=== PATIENT | female | born 2000 | race Caucasian/White ===

== ENCOUNTER 2019-08-21 16:03 | Inpatient (IN) ==
[2019-08-21 14:09] LABS: Basophils % 0.2 %; Eosinophils # 0.1 K/mcL (0.0-0.6); Eosinophils % 0.5 %; Hematocrit 36.2 % (35.3-44.9); Hemoglobin 12.4 g/dL (11.5-15.4); Immature Granulocytes % 0.5 % (0-4); Lymphocytes # 1.5 K/mcL (0.6-4.6); Lymphocytes % 14.5 %; Mean Corpuscular HGB Conc 34.3 g/dL (31.6-35.5); Mean Corpuscular Hemoglobin 29.4 pg (28.0-33.3); Mean Corpuscular Volume 85.8 fL (83.0-100.0); Mean Platelet Volume 10.7 fL (9.4-12.4); Monocytes # 0.6 K/mcL (0.0-1.3); Neutrophils # 8.2 K/mcL (1.6-8.9); Platelet Count 198 K/mcL (140-400); Red Blood Count 4.22 M/mcL (3.82-4.97); Red Cell Distribution Width 13.1 % (11.5-14.5); Segmented Neutrophils % 78.3 %; White Blood Count 10.4 K/mcL (4.3-11.1)
[2019-08-21 14:24] LABS: Alanine Aminotransferase 16 Units/L (7-52); Aspartate Amino Transferase 24 Units/L (13-39); BUN/Creatinine Ratio 15 (6-26); Blood Urea Nitrogen 8 mg/dL (6-20); Lactate Dehydrogenase 236 Units/L (140-271); Uric Acid 5.2 mg/dL (2.3-7.6); eGFR For African Americans > 60 (> 60); eGFR For Non-African Americans > 60 (> 60)
[2019-08-21 14:34] LABS: Protein/Creatinine Ratio,Urine 0.34 mg/mg (0.00-0.20)
[~2019-08-21 16:03] MED LIST: *HR* FentaNYL (PF) 100 MCG/2 ML VIAL IVP PRN; Azithromycin 500 MG in 0.9 % Sodium Chloride 250 ML IVPB ONE; Famotidine 20 MG/2 ML VIAL IVP PRN; Metoclopramide 10 MG/2 ML VIAL IVP PRN; Naloxone 0.4 MG/ML INJ IVP PRN; Ondansetron 4 MG/2 ML VIAL IVP PRN
[2019-08-21] MEDS ORDERED: miSOPROStoL 25 MCG TABLET VG PRN (16:05)
[2019-08-21] MEDS ORDERED: Acetaminophen 325 MG TABLET PO PRN (16:05)
[2019-08-21] MEDS ORDERED: Ringers Solution, Lactated 1,000 ML IVC SCH (16:15)
[2019-08-21] MEDS ORDERED: EPHEDrine 50 MG/ML VIAL IVP PRN (16:25)
[2019-08-21] MEDS ORDERED: *HR* FentaNYL (PF) 100 MCG/2 ML VIAL EP ONE (16:25)
[2019-08-21] MEDS ORDERED: Epidural Premix (fent/bupiv) 110 ML EP SCH (16:30)
[2019-08-21 16:37] LABS: Amphetamine Screen,Urine Negative ng/mL (Cutoff=1000); Barbiturate Screen,Urine Negative ng/mL (Cutoff=200); Benzodiazepines Screen,Urine Negative ng/mL (Cutoff=200); Cannabinoid Screen,Urine Negative ng/mL (Cutoff = 50); Cocaine Screen,Urine Negative ng/mL (Cutoff= 300); Opiate Screen,Urine Negative ng/mL (Cutoff=300); Phencyclidine Screen,Urine Negative ng/mL (Cutoff=25)
[2019-08-21] MEDS ORDERED: *HR* FentaNYL (PF) 100 MCG/2 ML VIAL ONE (19:18)
[2019-08-22] MEDS ORDERED: Oxytocin 20 units/ LR 1000 mL 20 UNIT/1,000 ML BAG IVC ONE (03:15)
[2019-08-22] MEDS ORDERED: Lidocaine 1% 20 ML MDV INFILT PRN (03:17)
[2019-08-22] MEDS ORDERED: Oxytocin 20 units/ LR 1000 mL 20 UNIT/1,000 ML BAG IVC SCH (07:32)
[2019-08-22] MEDS ORDERED: Rho Immune Globulin 1,500 UNIT SYRINGE IM PRN (07:32)
[2019-08-22] MEDS ORDERED: Measles/Mumps/Rubella Vacc 0.5 ML VIAL SQ PRN (07:32)
[2019-08-22] MEDS ORDERED: *HR* Labetalol 20 MG/4 ML SYRINGE IVP ONE ×2 (07:50→07:57)
[2019-08-22] MEDS: Acetaminophen 325 MG TABLET PO PRN (07:55)
[2019-08-22] MEDS ORDERED: Calcium Gluconate 1,000 MG/10 ML VIAL IVP PRN (08:09)
[2019-08-22] MEDS: Ibuprofen 600 MG TABLET PO PRN ×3 (08:35→21:55)
[2019-08-22] MEDS ORDERED: [UNRECOGNIZED DRUG - OTHER] PO SCH (09:00)
[2019-08-22] MEDS: Magnesium Sulf 20 gm/SW 500mL 20 GM/500 ML IV.SOLN IVC SCH ×2 (09:06→18:14)
[2019-08-22] MEDS: Prenatal Vit/FA 1 EACH TABLET PO SCH (10:43)
[2019-08-23] MEDS: Magnesium Sulf 20 gm/SW 500mL 20 GM/500 ML IV.SOLN IVC SCH (04:49)
[2019-08-23 05:08] LABS: Basophils % 0.2 %; Eosinophils # 0.1 K/mcL (0.0-0.6); Eosinophils % 0.5 %; Hematocrit 32.8 % (35.3-44.9); Hemoglobin 11.1 g/dL (11.5-15.4); Immature Granulocytes % 0.5 % (0-4); Lymphocytes # 2.3 K/mcL (0.6-4.6); Lymphocytes % 17.6 %; Mean Corpuscular HGB Conc 33.8 g/dL (31.6-35.5); Mean Corpuscular Hemoglobin 29.8 pg (28.0-33.3); Mean Corpuscular Volume 87.9 fL (83.0-100.0); Mean Platelet Volume 10.4 fL (9.4-12.4); Monocytes # 0.9 K/mcL (0.0-1.3); Monocytes % 6.8 %; Neutrophils # 9.7 K/mcL (1.6-8.9); Platelet Count 163 K/mcL (140-400); Red Blood Count 3.73 M/mcL (3.82-4.97); Red Cell Distribution Width 13.6 % (11.5-14.5); Segmented Neutrophils % 74.4 %
[2019-08-23 05:27] LABS: Alanine Aminotransferase 23 Units/L (7-52); Albumin 2.7 g/dL (3.5-5.7); Albumin/Globulin Ratio 1.4 (1.1-2.2); Alkaline Phosphatase 95 Units/L (34-104); Aspartate Amino Transferase 55 Units/L (13-39); BUN/Creatinine Ratio 9 (6-26); Bilirubin,Total 0.3 mg/dL (0.3-1.0); Blood Urea Nitrogen 4 mg/dL (6-20); Calcium 6.7 mg/dL (8.6-10.3); Carbon Dioxide 25 mEq/L (23-29); Chloride 107 mEq/L (98-107); Glucose 94 mg/dL (70-105); Lactate Dehydrogenase 425 Units/L (140-271); Osmolality,Calculated 281 (280-300); Potassium 3.2 mEq/L (3.5-5.1); Sodium 137 mEq/L (136-145); Total Protein 4.7 g/dL (6.4-8.9); Uric Acid 5.5 mg/dL (2.3-7.6); eGFR For African Americans > 60 (> 60); eGFR For Non-African Americans > 60 (> 60)
[2019-08-23] MEDS: Ibuprofen 600 MG TABLET PO PRN ×2 (05:57→20:11)
[2019-08-23] MEDS: Prenatal Vit/FA 1 EACH TABLET PO SCH (08:43)
[2019-08-23] MEDS: NIFEdipine XL (24 HR) 30 MG TAB.ER.24 PO SCH (15:39)
[2019-08-24] MEDS: Ibuprofen 600 MG TABLET PO PRN (03:58)
[2019-08-24] MEDS: Prenatal Vit/FA 1 EACH TABLET PO SCH (08:07)
[2019-08-24] MEDS: NIFEdipine XL (24 HR) 30 MG TAB.ER.24 PO SCH (08:08)
[2019-08-24] MEDS: Acetaminophen 325 MG TABLET PO PRN (08:09)
[2019-08-24 11:24] VITALS: BP 144/88
== END 2019-08-24 11:05 | disposition home or self-care (01) | DRG 807 ==
LOC: 1NENULAB → 1NENUOBS 08-22 10:03
PROVIDERS: ADMIT Student in an Organized Health Care Education/Training Program; ATTEND Student in an Organized Health Care Education/Training Program

== ENCOUNTER 2021-04-16 08:04 | Inpatient (IN) ==
[~2021-04-16 08:04] MED LIST changes: -*HR* FentaNYL (PF) 100 MCG/2 ML VIAL IVP PRN; -Azithromycin 500 MG in 0.9 % Sodium Chloride 250 ML IVPB ONE; -Ondansetron 4 MG/2 ML VIAL IVP PRN; +Ringers Solution, Lactated 2,000 ML ONE
[2021-04-16 08:50] LABS: Basophils % 0.2 %; Eosinophils # 0.1 K/mcL (0.0-0.6); Eosinophils % 0.6 %; Hematocrit 36.5 % (35.3-44.9); Hemoglobin 12.4 g/dL (11.5-15.4); Immature Granulocytes % 0.4 % (0-4); Lymphocytes # 1.6 K/mcL (0.6-4.6); Lymphocytes % 12.6 %; Mean Corpuscular Hemoglobin 29.5 pg (28.0-33.3); Mean Corpuscular Volume 86.9 fL (83.0-100.0); Mean Platelet Volume 10.6 fL (9.4-12.4); Monocytes # 0.8 K/mcL (0.0-1.3); Platelet Count 271 K/mcL (140-400); Red Cell Distribution Width 13.1 % (11.5-14.5); Segmented Neutrophils % 80.2 %; White Blood Count 12.5 K/mcL (4.3-11.1)
[2021-04-16] MEDS ORDERED: Epidural Premix (fent/bupiv) 110 ML EP ONE (08:53)
[2021-04-16] MEDS ORDERED: *HR* Phenylephrine 10 MG/ML VIAL ONE (08:54)
[2021-04-16] MEDS ORDERED: Ondansetron 4 MG/2 ML VIAL ONE (08:54)
[2021-04-16] MEDS ORDERED: Bupivacaine-MPF 0.25% 10 ML VIAL ONE (08:54)
[2021-04-16 08:56] LABS: Protein/Creatinine Ratio,Urine 0.34 mg/mg (0.00-0.20)
[2021-04-16 09:07] LABS: Alanine Aminotransferase 11 Units/L (7-52); Aspartate Amino Transferase 17 Units/L (13-39); BUN/Creatinine Ratio 10 (6-26); Blood Urea Nitrogen 5 mg/dL (6-20); Lactate Dehydrogenase 204 Units/L (140-271); Uric Acid 4.1 mg/dL (2.3-7.6); eGFR For African Americans > 60 (> 60); eGFR For Non-African Americans > 60 (> 60)
[2021-04-16 09:22] LABS: Influenza A PCR Negative (Negative); Influenza B PCR Negative (Negative); Resp. Syncytial Virus PCR Negative (Negative)
[2021-04-16 09:23] LABS: SARS-CoV-2 by PCR (In House) Negative (Negative)
[2021-04-16] MEDS ORDERED: Oxytocin 20 units/ LR 1000 mL 20 UNIT/1,000 ML BAG IVC ONE (09:44)
[2021-04-16] MEDS ORDERED: EPHEDrine 50 MG/ML VIAL IVP PRN (10:42)
[2021-04-16] MEDS ORDERED: Epidural Premix (fent/bupiv) 110 ML EP SCH (10:45)
[2021-04-16] MEDS ORDERED: Methylergonovine 0.2 MG/ML AMPUL IM ONE (12:40)
[2021-04-16] MEDS ORDERED: miSOPROStoL 100 MCG TABLET RC ONE (12:40)
[2021-04-16 13:08] LABS: Amphetamine Screen,Urine Negative ng/mL (Cutoff=1000); Barbiturate Screen,Urine Negative ng/mL (Cutoff=200); Benzodiazepines Screen,Urine Negative ng/mL (Cutoff=200); Cannabinoid Screen,Urine Negative ng/mL (Cutoff = 50); Cocaine Screen,Urine Negative ng/mL (Cutoff= 300); Opiate Screen,Urine Negative ng/mL (Cutoff=300); Phencyclidine Screen,Urine Negative ng/mL (Cutoff=25)
[2021-04-16] MEDS ORDERED: Ondansetron ODT 4 MG TAB.RAPDIS SL PRN (13:55)
[2021-04-16] MEDS ORDERED: Oxytocin 20 units/ LR 1000 mL 20 UNIT/1,000 ML BAG IVC SCH (13:55)
[2021-04-16] MEDS ORDERED: Measles/Mumps/Rubella Vacc 0.5 ML VIAL SQ PRN (13:55)
[2021-04-16] MEDS ORDERED: Lanolin 7 G OINT...G. TP PRN (13:55)
[2021-04-16] MEDS ORDERED: Rho Immune Globulin 1,500 UNIT SYRINGE IM PRN (13:55)
[2021-04-16] MEDS ORDERED: Benzocaine/Menthol 56 GM AEROSOL SPRAY TP PRN (13:55)
[2021-04-16] MEDS: Acetaminophen 325 MG TABLET PO SCH ×2 (14:12→20:16)
[2021-04-16] MEDS: Ibuprofen 600 MG TABLET PO SCH ×2 (16:12→23:27)
[2021-04-17 04:20] VITALS: TEMP 97.9
[2021-04-17] MEDS: Acetaminophen 325 MG TABLET PO SCH (04:34)
[2021-04-17 05:28] LABS: Basophils % 0.3 %; Eosinophils # 0.1 K/mcL (0.0-0.6); Eosinophils % 0.5 %; Immature Granulocytes % 0.4 % (0-4); Lymphocytes # 2.4 K/mcL (0.6-4.6); Lymphocytes % 20.9 %; Mean Corpuscular HGB Conc 33.8 g/dL (31.6-35.5); Mean Corpuscular Hemoglobin 29.9 pg (28.0-33.3); Mean Corpuscular Volume 88.4 fL (83.0-100.0); Mean Platelet Volume 10.6 fL (9.4-12.4); Monocytes % 8.5 %; Neutrophils # 7.9 K/mcL (1.6-8.9); Platelet Count 237 K/mcL (140-400); Red Blood Count 3.28 M/mcL (3.82-4.97); Red Cell Distribution Width 13.2 % (11.5-14.5); Segmented Neutrophils % 69.4 %; White Blood Count 11.4 K/mcL (4.3-11.1)
[2021-04-17 05:31] LABS: Hemoglobin 9.8 g/dL (11.5-15.4)
[2021-04-17 07:31] VITALS: BP 120/78; PULSE 84; O2SAT 98
[2021-04-17] MEDS ORDERED: Prenatal Vit/FA 1 EACH TABLET PO SCH (09:00)
[2021-04-17] MEDS: Ibuprofen 600 MG TABLET PO SCH (09:32)
== END 2021-04-17 13:17 | disposition home or self-care (01) | DRG 806 ==
LOC: 1NENULAB → 1NENUOBS 16:10
PROVIDERS: ADMIT Obstetrics & Gynecology; ATTEND Obstetrics & Gynecology

== ENCOUNTER 2021-11-08 15:05 | Observation (INO) ==
[2021-11-08] MEDS ORDERED: 0.9 % Sodium Chloride 1,000 ML IVC SCH ×2 (18:00→22:55)
[2021-11-08] MEDS ORDERED: Ondansetron 4 MG/2 ML VIAL IVP PRN ×2 (18:01→22:55)
[2021-11-08] MEDS ORDERED: Acetaminophen IV 1,000 MG/100 ML BAG IVPB ONE (20:04)
[2021-11-08] MEDS ORDERED: Famotidine 20 MG/2 ML VIAL IVP ONE (20:04)
[2021-11-08] MEDS ORDERED: *HR* OxyCODONE Immed Rel 5 MG TABLET PO PRN (20:04)
[2021-11-08] MEDS ORDERED: *HR* Labetalol 20 MG/4 ML SYRINGE IVP PRN (20:04)
[2021-11-08] MEDS ORDERED: Ketorolac 30 MG/ML VIAL IVP PRN (20:04)
[2021-11-08] MEDS ORDERED: Promethazine 6.25 MG in Water for inj. (sterile) 20 ML IVPB PRN (20:04)
[2021-11-08] MEDS ORDERED: Scopolamine Patch 1.5 MG PATCH.TD72 TD ONE (20:04)
[2021-11-08] MEDS ORDERED: *HR* HYDROmorphone (PF) 1 MG/ML SYRINGE IVP PRN (20:04)
[2021-11-08] MEDS ORDERED: *HR* Midazolam HCl 2 MG/2 ML VIAL ONE (20:09)
[2021-11-08] MEDS ORDERED: *HR* FentaNYL (PF) 100 MCG/2 ML VIAL ONE (20:09)
[2021-11-08] MEDS ORDERED: Lidocaine -MPF 2% 5 ML VIAL ONE ×2 (20:10→21:15)
[2021-11-08] MEDS ORDERED: Lidocaine HCL 4 ML Topical Solution (Laryng-O-Jet Kit Sterile Pak) TP ONE (20:10)
[2021-11-08] MEDS ORDERED: *HR* Succinylcholine 200 MG/10 ML VIAL IVP ONE (20:10)
[2021-11-08] MEDS ORDERED: Ondansetron 4 MG/2 ML VIAL ONE (20:10)
[2021-11-08] MEDS ORDERED: *HR* Rocuronium Bromide 50 MG/5 ML VIAL ONE (20:10)
[2021-11-08] MEDS ORDERED: CefOXitin 1,000 MG VIAL ONE (20:16)
[2021-11-08] MEDS ORDERED: Lacri-Lube 3.5 GM TUBE ONE (20:54)
[2021-11-08] MEDS ORDERED: CefOXitin 2,000 MG VIAL ONE (20:59)
[2021-11-08] MEDS ORDERED: Sugammadex Sodium 200 MG/2 ML VIAL IV ONE (21:16)
[2021-11-08] MEDS ORDERED: *HR* HYDROMORPHONE 2 MG/ML VIAL ONE (21:18)
[2021-11-08] MEDS ORDERED: Ketorolac 30 MG/ML VIAL ONE (21:30)
[2021-11-08] MEDS ORDERED: cefOXitin 2,000 MG in 0.9 % Sodium Chloride 20 ML IVP ONE (21:34)
[2021-11-08] MEDS ORDERED: *HR* OxyCODONE/APAP 5/325 TABLET PO PRN (22:55)
[2021-11-09] MEDS ORDERED: Piperacillin/Tazobactam 3.375 GM in 0.9 % Sodium Chloride Mini Bag 100 ML IVPB SCH
[2021-11-09] MEDS: Piperacillin/Tazobactam 3.375 GM in 0.9 % Sodium Chloride Mini Bag 100 ML IVPB SCH ×2 (00:09→08:02)
[2021-11-09 07:25] VITALS: BP 95/60; PULSE 89; TEMP 97.7; O2SAT 98
== END 2021-11-09 12:26 | disposition home or self-care (01) ==
LOC: 3ANU
PROVIDERS: ADMIT Surgery; ATTEND Surgery